=== PATIENT | female | born 1985 | race Caucasian/White ===

== ENCOUNTER 2022-09-21 20:47 | Inpatient (IN) | payer BC ==
[~2022-09-21] VITALS: Ht 165.1 cm; Wt 64.6 kg
[2022-09-21 21:42] LABS: BASO % 0.5 % (0.0-2.0); EOS # 0.1 K/mm3 (0.0-0.7); EOS % 1.2 % (0.0-4.0); GRAN # 3.1 K/mm3 (1.4-6.5); GRAN % 75.9 % (42.2-75.2); HEMATOCRIT 39.1 % (37.0-47.0); HEMOGLOBIN 13.6 g/dl (12.5-16.0); LYMPH # 0.6 K/mm3 (1.2-3.4); LYMPH % 14.5 % (20.0-51.0); MEAN CELL VOLUME 92 fl (80.0-100.0); MEAN CORPUSCULAR HEMOGLOBIN 32 pg (27-31); MEAN CORPUSCULAR HGB CONC 35 g/dl (33.0-37.0); MEAN PLATELET VOLUME 10.9 fl (7.4-10.4); MONO # 0.3 K/mm3 (0.1-0.6); MONO % 7.7 % (1.7-9.3); PLATELET COUNT 68 K/mm3 (130-400); RED BLOOD COUNT 4.26 M/mm3 (4.10-5.30); REDCELL DISTRIBUTION WIDTH-CV 19.3 % (11.5-14.5)
[2022-09-21 22:00] LABS: ALANINE AMINOTRANSFERASE 27 U/L (0-55); ALBUMIN 3.9 gm/dL (3.5-5.0); ALKALINE PHOSPHATASE 108 U/L (40-150); ANION GAP 15 mmol/L (7-16); AST,SGOT 85 U/L (5-34); BILIRUBIN,TOTAL 2.1 mg/dL (0.2-1.2); BLOOD UREA NITROGEN 9 mg/dL (7-19); CALCIUM 9.3 mg/dL (8.4-10.2); CARBON DIOXIDE 21 mmol/L (22-29); CHLORIDE 99 mmol/L (98-107); CREATININE, serum 0.86 mg/dL (0.57-1.11); GLUCOSE 102 mg/dL (70-99); LIPASE 202 U/L (8-78); POTASSIUM 3.2 mmol/L (3.5-4.5); SODIUM 135 mmol/L (136-145); TOTAL PROTEIN 8.4 gm/dL (6.2-8.1)
[2022-09-21 22:05] LABS: ALCOHOL(ethanol),MEDICAL < 10 mg/dL (0-10)
[2022-09-21 22:44] LABS: PROTHROMBIN TIME 23.5 SECONDS (9.7-12.8)
[2022-09-21 22:46] LABS: PARTIAL THROMBOPLASTIN TIME 31.3 SECONDS (26.0-37.0)
[2022-09-21] MEDS ORDERED: LO-OVRAL PO (22:46)
[2022-09-21 22:52] LABS: PHOSPHOROUS 1.1 mg/dL (2.3-4.7)
--- NOTE | 2022-09-21 23:30 | NUR ---
HAND OFF REPORT RECEIVED FROM FERN MILLINERY SALESPERSON
[2022-09-21 23:53] LABS: COLLECTION METHOD CLEAN CATCH
[2022-09-22] VITALS (711 sets, daily range): BP systolic 109–135; BP diastolic 74–110; PULSE 84–105; TEMP 97.5–98.5; O2SAT 83–100
--- NOTE | 2022-09-22 | NUR ---
PT ARRIVED TO UNIT VIA WHEELCHAIR WITH RN ROOM AIR, NO MONITORS, WITH IVF RUNNING VIA GRAVITY. PT ABLE TO STAND AND TRANSFER TO ICU WITH SBA PT DID EXPRESS SLIGHT WEAKNESS. PT A&O x4 BUT IS CLOUDY AND POSTICTAL. PT HAD TONIC COLNIC SEIZURE ON COUCH AT HOME @ 2044 THAT LASTED 1MIN PER S/O. S/O LACEY REPORTS THAT PT DID NOT FALL OFF COUCH AND DID NOT HIT HER HEAD. PT DOES NOT REMEMBER SEIZURE. PT HAS NOT HAD SEIZURES WITH ETOH W/D IN THE PAST. INITAL CIWA SCORE OF 5 FOR TREMORS AND PULSE. PT REPORTS THAT SHE HAS MILD HAND TREMMORS EVEN WHEN NOT IN ETOH W/D. PT IS ON ROOM AIR WITH CLEAR LUNG SOUNDS. PT SKIN WARM DRY AND INTACT WITH APPROX 1' ROUND BRUISE ON MID THORASIC VERTABRAE. PT EDUCATED ON USE OF CALL LIGHT AND THAT SHE WILL NEED STAFF TO ASSIST HER WHEN GETTING UP OUT OF BED FOR SAFETY. SEIZURE PRECAUTIONS IN PLACE. BED ALARM ON AND CALL LIGHT WITHIN REACH.
[2022-09-22 00:08] LABS: MUCOUS Present (NOT PRESENT); URINE BACTERIA Moderate /hpf (NONE SEEN); URINE CALCIUM OXALATE CRYSTAL Present (NOT PRESENT); URINE RBC >50 /hpf (0-2); URINE WBC >50 /hpf (0-2)
[2022-09-22 00:09] LABS: PH 5.5 (5.0-8.5); URINE APPEARANCE Cloudy (CLEAR/HAZY); URINE BLOOD 3+ (NEGATIVE); URINE COLOR Amber (YELLOW); URINE GLUCOSE Negative (NEGATIVE); URINE KETONE 2+ (NEGATIVE); URINE NITRATE Positive (NEGATIVE); URINE PROTEIN(semi-quant) 3+ (NEGATIVE)
[2022-09-22 00:12] LABS: TRICYCLIC ANTIDEPRESS URINE NEGATIVE
--- NOTE | 2022-09-22 01:55 | NUR ---
TRANSPORTED PT TO CT FOR HEAD CT SCAN VIA WHEELCHAIR. 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 THIS INFORMATION WAS PASSED ALONG TO HOSPITALIST.
[2022-09-22 05:39] LABS: BASO % 0.3 % (0.0-2.0); EOS # 0.1 K/mm3 (0.0-0.7); EOS % 2.4 % (0.0-4.0); GRAN # 2.2 K/mm3 (1.4-6.5); GRAN % 65.2 % (42.2-75.2); LYMPH # 0.7 K/mm3 (1.2-3.4); LYMPH % 21.3 % (20.0-51.0); MEAN CELL VOLUME 94 fl (80.0-100.0); MEAN CORPUSCULAR HGB CONC 34 g/dl (33.0-37.0); MEAN PLATELET VOLUME 11.2 fl (7.4-10.4); MONO # 0.4 K/mm3 (0.1-0.6); MONO % 10.5 % (1.7-9.3); RED BLOOD COUNT 3.52 M/mm3 (4.10-5.30); REDCELL DISTRIBUTION WIDTH-CV 19.6 % (11.5-14.5)
[2022-09-22 05:41] LABS: HEMATOCRIT 33.1 % (37.0-47.0); HEMOGLOBIN 11.2 g/dl (12.5-16.0); MEAN CORPUSCULAR HEMOGLOBIN 32 pg (27-31)
[2022-09-22 05:42] LABS: PLATELET COUNT 48 K/mm3 (130-400)
[2022-09-22 05:45] LABS: CALCIUM 7.4 mg/dL (8.4-10.2); CREATININE, serum 0.66 mg/dL (0.57-1.11); POTASSIUM 4.2 mmol/L (3.5-4.5)
--- NOTE | 2022-09-22 09:20 | NUR ---
BEDSIDE REPORT RECEIVED FROM WILLIAMS MUELLER. PT RESTING IN BED, SEIZURE PRECAUTIONS IN PLACE. VSS, PT ON ROOM AIR. NS INFUSING ORDERED TO PERIPHERAL IV IN R AC. PT DENIES NEEDS AT THIS TIME, CALL LIGHT IN REACH.
--- NOTE | 2022-09-22 13:06 | NUR ---
Initial visit: Pt was resting and content. Pt has no needs right now. Ax Survey Worker will follow up as needed.
--- NOTE | 2022-09-22 14:43 | NUR ---
SW met with patient to complete intake. Patients life partner Don ([phone]) present at bedside. Patient lives at home with Don in [place]. Patient verbalizes that she is fully independent with her ADL's and IADL. She has no home oxygen needs and does not utilize any DME to assist with mobility at home. She reports that she had a PCP through [facility] but would like to get established with a provider in [place]. She utilizes [facility] for prescriptions. Patient reports that she does have a [facility] established listing her brother Guillermo Rios ([phone]) as her agent. SW addressed patients etho use as patient has been to [facility] in the past 6 months. Patient delined treatment and counseling resources. Patient verbalizes that she would like a womens check up scheduled with at the [facility] prior to being discharged. Educated patient that this is something we can assist with.
--- NOTE | 2022-09-22 18:14 | NUR ---
PT IN STABLE CONDITION THROUGHOUT SHIFT. NO SEIZURE ACTIVITY NOTED. PER CIWA PROTOCOL PT HAS SCORED 4 ALL DAY FOR SLIGHT TREMOR TO HANDS. PT DENIES PAIN OR N/V. TOLERATES FOOD AND PO FLUIDS WELL. PT USES BEDSIDE COMMODE TO VOID AND HAS HAD GOOD URINE OUTPUT. 20G IV INSERTED TO L FOREARM, 20G TO R AC LEFT IN PLACE WELL. NS RAN ORDERED TO L FOREARM. SEIZURE PRECAUTIONS REMAIN IN PLACE. PT USES CALL LIGHT FOR NEEDS. SIGNIFICANT OTHER AT BEDSIDE.
--- NOTE | 2022-09-22 19:44 | NUR ---
ASSISTED PT TO BSC. PT TOLERATED WELL WITH NO DISTRESS NOTED. ASSITED PT BACK TO BED AND REAPPLIED MONITORING DEVICES. PT VERBALIZES NO COMPLAINTS. SEIZURE PADS ON BED. BED LOW AND WHEELS LOCKED. CALL LIGHT WITHIN REACH. SIGNIFIGANT OTHER AT BEDSIDE.
[2022-09-23] VITALS (253 sets, daily range): BP systolic 114–136; BP diastolic 61–98; PULSE 77–91; TEMP 98.1–98.2; O2SAT 61–100
[2022-09-23 05:57] LABS: INR 2.1 (0.8-3.0); PROTHROMBIN TIME 24.7 SECONDS (9.7-12.8)
[2022-09-23 06:01] LABS: BASO % 0.6 % (0.0-2.0); EOS # 0.1 K/mm3 (0.0-0.7); EOS % 2.8 % (0.0-4.0); GRAN # 2.1 K/mm3 (1.4-6.5); GRAN % 64.1 % (42.2-75.2); HEMOGLOBIN 12.2 g/dl (12.5-16.0); LYMPH # 0.8 K/mm3 (1.2-3.4); LYMPH % 24.1 % (20.0-51.0); MEAN CELL VOLUME 95 fl (80.0-100.0); MEAN CORPUSCULAR HEMOGLOBIN 32 pg (27-31); MEAN CORPUSCULAR HGB CONC 34 g/dl (33.0-37.0); MEAN PLATELET VOLUME 10.5 fl (7.4-10.4); MONO # 0.3 K/mm3 (0.1-0.6); MONO % 8.1 % (1.7-9.3); PLATELET COUNT 55 K/mm3 (130-400); RED BLOOD COUNT 3.81 M/mm3 (4.10-5.30); REDCELL DISTRIBUTION WIDTH-CV 19.2 % (11.5-14.5)
[2022-09-23 06:03] LABS: HEMATOCRIT 36.2 % (37.0-47.0)
[2022-09-23 06:09] LABS: ALBUMIN 3.3 gm/dL (3.5-5.0); CALCIUM 8.3 mg/dL (8.4-10.2); CREATININE, serum 0.68 mg/dL (0.57-1.11); MAGNESIUM 1.6 mg/dL (1.6-2.6); PHOSPHOROUS 2.4 mg/dL (2.3-4.7); POTASSIUM 3.6 mmol/L (3.5-4.5); TOTAL PROTEIN 7.3 gm/dL (6.2-8.1)
[2022-09-23 06:32] LABS: THYROID STIMULATING HORMONE 3.405 uIU/mL (0.350-4.940)
--- NOTE | 2022-09-23 07:36 | NUR ---
Report received from WILLIAMS Tinoco; patient currently in the process of getting an EEG; patient has fluids running through her peripheral line; no other lines or tubes are in place at this time. Patient's vital signs are within normal limits this morning and patient has not been scoring high enough on CIWA to receive Ativan; patient still on Valium taper.
[2022-09-23] MEDS ORDERED: FOLIC ACID 11 MG/TA1 PO (08:46)
[2022-09-23] MEDS ORDERED: THIAMINE 1100 MG/TAB PO (08:47)
[2022-09-23] MEDS ORDERED: DUO-KAPS1 CAP PO (08:47)
[2022-09-23] MEDS ORDERED: OMNICEF 300MG300 MG PO (08:51)
[2022-09-23] MEDS ORDERED: VALIUM 5MG T5 MG/TAB PO ×2 (08:52→09:23)
--- NOTE | 2022-09-23 11:30 | NUR ---
Patient discharged home in stable condition; patient was ambulatory and left with her significant other and this nurse walked them out. Patient sent home with all their belongings.
[2022-09-23 19:51] LABS: LYME DISEASE ANTIBODIES Negative (Negative)
== END 2022-09-23 11:26 | disposition home or self-care (01) | DRG 897 ==
LOC: COL.ER 20:47 → ICU 22:29
PROVIDERS: Emergency Medicine; Nurse Practitioner Family; Psychiatry & Neurology Neurology; ADMIT Internal Medicine
DX: F10.139 Alcohol abuse with withdrawal, unspecified (principal); E87.1 Hypo-osmolality and hyponatremia; E87.20 Acidosis, unspecified; N39.0 Urinary tract infection, site not specified; D61.818 Other pancytopenia; G40.909 Epilepsy, unspecified, not intractable, without status epilepticus; E87.6 Hypokalemia; D69.6 Thrombocytopenia, unspecified; E83.39 Other disorders of phosphorus metabolism; G93.9 Disorder of brain, unspecified; Z88.0 Allergy status to penicillin; Z88.2 Allergy status to sulfonamides
CPT/HCPCS: A9575; C9113; J0696; J2060; J3411; J7030; J7050